=== PATIENT | female | born 1985 | race Caucasian/White ===

== ENCOUNTER 2018-09-23 13:11 | Emergency (ER) | payer OTHER ==
[~2018-09-23] VITALS: Ht 165.1 cm; Wt 127.0 kg
[2018-09-23] MEDS ORDERED: NOHOMEMEDICATIONS (13:23)
[2018-09-23] MEDS ORDERED: PROAIR HFA8.5 GM INH (13:59)
[2018-09-23] MEDS ORDERED: PREDNISONE 20 M20 M1 PO (13:59)
[2018-09-23 14:08] VITALS: BP 130/80
== END 2018-09-23 14:09 | disposition home or self-care (01) ==
LOC: M.ERS 13:11
DX: J20.9 Acute bronchitis, unspecified (principal); L50.9 Urticaria, unspecified